=== PATIENT | male | born 1955 | race Two or more races ===

== ENCOUNTER → 2018-06-17 | Emergency (ER) | payer OTHER ==
[~2018-06-17] VITALS: Ht 172.7 cm; Wt 54.4 kg
[~2018-06-17] MED LIST: HYZAAR 100-251 EACH PO; METOPROLOL SUCC50 MG PO; NIFEDIPINE ER30 M1 PO
== END | disposition home or self-care (01) ==
LOC: ER 15:04
DX: I16.0 Hypertensive urgency (principal); I10 Essential (primary) hypertension

== ENCOUNTER 2018-07-06 10:29 | Outpatient (CLI) | payer OTHER | END 2018-07-06 10:39 | disposition home or self-care (01) | LOC: LAB 10:29 | DX: Z11.3 Encounter for screening for infections with a predominantly sexual mode of transmission (principal) ==

== ENCOUNTER 2019-02-09 08:03 | Emergency (ER) | payer OTHER ==
[~2019-02-09] VITALS: Ht 170.2 cm; Wt 54.4 kg
== END 2019-02-10 09:12 | disposition home or self-care (01) ==
LOC: ER 08:03
DX: R42 Dizziness and giddiness (principal); R00.2 Palpitations

== ENCOUNTER 2019-05-19 07:50 | Outpatient (CLI) | payer OTHER | END 2019-05-19 08:19 | disposition home or self-care (01) | LOC: NUCLEAR 07:50 | DX: I11.9 Hypertensive heart disease without heart failure (principal); E78.1 Pure hyperglyceridemia; I34.0 Nonrheumatic mitral (valve) insufficiency; E11.8 Type 2 diabetes mellitus with unspecified complications ==

== ENCOUNTER 2020-03-24 08:00 | Outpatient (CLI) | payer OTHER | END 2020-03-24 15:00 | disposition home or self-care (01) | LOC: PPH VACUNA 08:00 | DX: Z23 Encounter for immunization (principal) ==

== ENCOUNTER 2021-01-15 20:57 | Inpatient (IN) | payer OTHER ==
[~2021-01-15] VITALS: Ht 167.6 cm; Wt 54.4 kg
[2021-01-15] MEDS ORDERED: PROCARDIA (21:33)
[2021-01-16] MEDS ORDERED: NIFEDIPINE20 MG (08:10)
== END 2021-01-19 16:15 | disposition home or self-care (01) | DRG 305 ==
LOC: ER 20:57 → SURH 21:57 → MEDI 01-16 16:20
PROVIDERS: ADMIT Internal Medicine; ATTEND Internal Medicine
PROC: 8E0ZXY6 Isolation (ICD-10-PCS; 2021-01-15)
PROC: 4A12X4Z Monitoring of Cardiac Electrical Activity, External Approach (ICD-10-PCS; principal; 2021-01-16)
DX: I16.1 Hypertensive emergency (principal); M62.82 Rhabdomyolysis; E86.0 Dehydration; I11.9 Hypertensive heart disease without heart failure; Z20.822 Contact with and (suspected) exposure to COVID-19; R41.82 Altered mental status, unspecified; R77.8 Other specified abnormalities of plasma proteins; F43.22 Adjustment disorder with anxiety
CPT/HCPCS: 70551

== ENCOUNTER 2021-01-25 09:03 | Outpatient (CLI) | payer OTHER ==
[~2021-01-25 09:03] MED LIST changes: +NIFEDIPINE20 MG; +PROCARDIA
== END 2021-01-25 10:57 | disposition home or self-care (01) ==
LOC: LAB 09:03
PROVIDERS: ATTEND Internal Medicine
DX: E11.8 Type 2 diabetes mellitus with unspecified complications (principal); D64.89 Other specified anemias

== ENCOUNTER 2021-02-08 08:00 | Outpatient (CLI) | payer OTHER | END 2021-02-08 08:30 | disposition home or self-care (01) | LOC: PPH VACUNA 08:00 | PROVIDERS: ATTEND Emergency Medicine Pediatric Emergency Medicine | DX: Z23 Encounter for immunization (principal) ==

== ENCOUNTER 2021-03-09 12:57 | Outpatient (CLI) | payer OTHER | END 2021-03-09 12:58 | disposition home or self-care (01) | LOC: LAB 12:57 | PROVIDERS: ATTEND Emergency Medicine | DX: Z03.818 Encounter for observation for suspected exposure to other biological agents ruled out (principal); Z20.828 Contact with and (suspected) exposure to other viral communicable diseases; R06.02 Shortness of breath; R05.8 Other specified cough ==

== ENCOUNTER 2021-04-03 10:56 | Outpatient (CLI) | payer OTHER | END 2021-04-03 15:31 | disposition home or self-care (01) | LOC: LAB 10:56 | DX: Z20.822 Contact with and (suspected) exposure to COVID-19 (principal) ==

== ENCOUNTER 2021-12-11 08:00 | Outpatient (CLI) | payer OTHER | END 2021-12-11 08:05 | disposition home or self-care (01) | LOC: PPH VACUNA 08:00 | PROVIDERS: ATTEND Emergency Medicine Pediatric Emergency Medicine | DX: Z23 Encounter for immunization (principal) ==

== ENCOUNTER 2023-01-07 01:45 | Outpatient (CLI) | payer OTHER | END 2023-01-07 01:55 | disposition home or self-care (01) | LOC: PPH VACUNA 01:45 | PROVIDERS: ATTEND Emergency Medicine Pediatric Emergency Medicine | DX: Z23 Encounter for immunization (principal) | CPT/HCPCS: 90686; G0008 ==

== ENCOUNTER 2023-11-25 08:12 | Outpatient (CLI) | payer OTHER | END 2023-11-25 09:43 | disposition home or self-care (01) | LOC: LAB 08:12 | DX: B19.10 Unspecified viral hepatitis B without hepatic coma (principal) ==

== ENCOUNTER 2024-01-22 11:40 | Outpatient (CLI) | payer OTHER | END 2024-01-22 12:00 | disposition home or self-care (01) | LOC: PPH VACUNA 11:40 | PROVIDERS: ATTEND Emergency Medicine Pediatric Emergency Medicine | DX: Z23 Encounter for immunization (principal) ==

== ENCOUNTER 2024-12-14 07:13 | Outpatient (CLI) | payer OTHER ==
[2024-12-15 07:08] LABS: HEPATITIS A ANTIBODY IGG Positive (Negative); HEPATITIS C VIRUS ANTIBODY Non Reactive (Non Reactive)
== END 2024-12-14 08:36 | disposition home or self-care (01) ==
LOC: LAB 07:13
DX: A64 Unspecified sexually transmitted disease (principal); B15.9 Hepatitis A without hepatic coma; B17.10 Acute hepatitis C without hepatic coma